=== PATIENT | female | born 1990 | race Caucasian/White ===

== ENCOUNTER 2016-10-26 12:33 | Observation (INO) | payer SELFPAY ==
[~2016-10-26] VITALS: Ht 167.6 cm; Wt 56.7 kg
[2016-10-26] MEDS ORDERED: DIPHTH,PERTUSS(ACELL),TET TOX 0.5 ML DISP.SYRIN. VAX IM ONE (12:45)
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
[2016-10-26] MEDS ORDERED: HYDR-2666 PO (15:18)
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
[2016-10-26] MEDS ORDERED: IV NORMAL SALINE 1000ML BAG 1,000 ML IV ONE (17:00)
[2016-10-26] MEDS ORDERED: MORPHINE SULFATE 2 MG/ML DISP.SYRIN. IV PRN (17:15)
[2016-10-26] MEDS ORDERED: ONDANSETRON PF 4 MG/2 ML VIAL. IV PRN ×2 (17:15→20:00)
[2016-10-26 17:33] LABS: BASO % 0 % (0-3); EOS % 0 % (0-3); HEMATOCRIT 40.8 % (36.0-47.0); HEMOGLOBIN 13.4 g/dL (12.0-15.5); LYMPH # 1.2 x10^3/uL (1.0-4.8); LYMPH % 8 % (24-48); MEAN CORPUSCULAR HEMOGLOBIN 30 pg (25-35); MEAN CORPUSCULAR HGB CONC 33 g/dL (31-37); MEAN CORPUSCULAR VOLUME 91 fL (79-100); MONO % 7 % (0-9); NEUT % 85 % (31-73); PLATELET COUNT 183 x10^3/uL (140-400); RED BLOOD COUNT 4.49 x10^6/uL (3.50-5.40); RED CELL DISTRIBUTION WIDTH 12.4 % (11.5-14.5); WHITE BLOOD COUNT 15.5 x10^3/uL (4.0-11.0)
[2016-10-26 17:45] LABS: CALCIUM 8.8 mg/dL (8.5-10.1); CREATININE 0.8 mg/dL (0.6-1.0); GFR 86.7; POTASSIUM 3.3 mmol/L (3.5-5.1)
[2016-10-26 17:50] LABS: % BASOS 1 % (0-3)
[2016-10-26 17:51] LABS: PLT ESTIMATE ADEQUATE (ADEQUATE)
[2016-10-26 17:52] LABS: TOXIC GRANULATION SLIGHT
[2016-10-26] MEDS ORDERED: ACETAMINOPHEN 325 MG TABLET. PO PRN (20:00)
[2016-10-26] MEDS ORDERED: HYDROCODONE/APAP 5/325MG TABLET. PO PRN (20:00)
[2016-10-26] MEDS ORDERED: IV NORMAL SALINE 1000ML BAG 1,000 ML IV SCH (20:00)
[2016-10-26] MEDS ORDERED: hydrALAZINE 20 MG/ML VIAL. IVP PRN (20:00)
[2016-10-26] MEDS ORDERED: ALBUTEROL SULFATE 2.5 MG/3 ML NEBU. NEB PRN (20:00)
[2016-10-26] MEDS ORDERED: POTASSIUM CHLORIDE 20 MEQ TABLET.ER. PO ONE (20:00)
[2016-10-26 20:35] VITALS: BP 103/63
--- NOTE | 2016-10-26 22:17 | PDOC ---
Provider Note Provider Note HP dictated CARMEN DAWN MD Oct 26, 2016 22:17
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
[2016-10-26 23:00] VITALS: BP 96/55
[2016-10-27 03:00] VITALS: BP 94/54
[2016-10-27 04:28] LABS: BASO # 0.1 x10^3/uL (0.0-0.2); BASO % 1 % (0-3); EOS % 1 % (0-3); HEMATOCRIT 37.4 % (36.0-47.0); HEMOGLOBIN 12.2 g/dL (12.0-15.5); LYMPH # 2.3 x10^3/uL (1.0-4.8); LYMPH % 21 % (24-48); MEAN CORPUSCULAR HEMOGLOBIN 31 pg (25-35); MEAN CORPUSCULAR HGB CONC 33 g/dL (31-37); MEAN CORPUSCULAR VOLUME 93 fL (79-100); MONO % 12 % (0-9); NEUT % 66 % (31-73); PLATELET COUNT 160 x10^3/uL (140-400); RED BLOOD COUNT 4.01 x10^6/uL (3.50-5.40); RED CELL DISTRIBUTION WIDTH 12.7 % (11.5-14.5); WHITE BLOOD COUNT 11.1 x10^3/uL (4.0-11.0)
[2016-10-27 04:38] LABS: CALCIUM 8.1 mg/dL (8.5-10.1); CREATININE 0.7 mg/dL (0.6-1.0); GFR 101.1; POTASSIUM 3.7 mmol/L (3.5-5.1)
[2016-10-27 07:00] VITALS: BP 109/57
[2016-10-27] MEDS ORDERED: ONDANSETRON PF 4 MG/2 ML VIAL. IV PRN (09:42)
[2016-10-27] MEDS ORDERED: HYDROCODONE/APAP 5/325MG TABLET. PO PRN (09:45)
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
[2016-10-27 11:00] VITALS: BP 106/65
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
== END 2016-10-27 18:00 | disposition home or self-care (01) ==
LOC: ER 12:33 → 5 SOUTH 17:05
PROVIDERS: ADMIT Internal Medicine; ATTEND Internal Medicine
DX: S50.812A Abrasion of left forearm, initial encounter (principal); M53.3 Sacrococcygeal disorders, not elsewhere classified; R55 Syncope and collapse; R51 Headache; M25.562 Pain in left knee; M79.669 Pain in unspecified lower leg; V09.20XA Pedestrian injured in traffic accident involving unspecified motor vehicles, initial encounter
CPT/HCPCS: 36415; 72220; 73521; 80048; 81025; 85007; 85027; 90471; 90715; 96360; 96361; 99285; G0378; J7030; G0379